=== PATIENT | female | born 1985 | race African-American/Black ===

== ENCOUNTER 2017-11-16 18:17 | Emergency (ER) | payer OTHER ==
[2017-11-16 18:24] VITALS: BP 127/79; PULSE 84; RESP 18; TEMP 98; O2SAT 100
[2017-11-16] MEDS ORDERED: HYDR12.57 PO (18:32)
[2017-11-16] MEDS ORDERED: ATOR20TA15 PO ×2 (18:32→19:55)
[2017-11-16] MEDS ORDERED: METF500T PO (18:32)
[2017-11-16] MEDS ORDERED: LISI10TA3 PO (18:32)
[2017-11-16] MEDS ORDERED: AMLO10TA2 PO (18:32)
--- NOTE | 2017-11-16 18:44 | PD ---
HPI Chief Complaint: Cardiac Complaint Time Seen by Provider: 18:42 Travel History International Travel<30 days: No Contact w/Intl Traveler<30days: No Traveled to known affect area: No History of Present Illness HPI 32-year-old female patient with history of palpitations which have been going on over the past month, being evaluated by a door tender in [facility], had just turned her Holter monitor and to them today. She states that she started having palpitation episodes lasting a few minutes at a time, worse than her usual, feels like it is getting faster. She states that it is coming and going. She denies any dizziness, shortness of breath, or any other issues. She has had stress testing and cardiac echo which were all unremarkable according to her. Modifying Factors: None Associated Signs & Symptoms: Palpitations Risk Factors: Being evaluated this month for palpitations PFSH Past Medical History High Cholesterol: Yes Diabetes: Yes Patient Takes Glucophage: Yes Hypertension: Yes ?: Not Tubal Ligation: Yes Past Surgical History Section: Yes Social History Alcohol Use: No Tobacco Use: No Substance Use: No Allergies-Medications (Allergen,Severity, Reaction): Coded Allergies: No Known Allergies (Unverified , 11/16/17) Reported Meds & Prescriptions Reported Meds & Active Scripts Active Reported Amlodipine (Amlodipine Besylate) 10 Mg Tab 10 Mg PO DAILY Metformin (Metformin HCl) 500 Mg Tab 500 Mg PO DAILY With a meal Lisinopril 10 Mg Tab 10 Mg PO DAILY Hydrochlorothiazide 12.5 Mg Cap 12.5 Mg PO DAILY Atorvastatin (Atorvastatin Calcium) 20 Mg Tab 20 Mg PO HS Review of Systems Except as stated in HPI: all other systems reviewed are Neg Physical Exam Narrative GENERAL: Well-developed young -[place] female patient currently in mild distress. Awake and oriented 3. SKIN: Focused skin assessment warm/dry. HEAD: Atraumatic. Normocephalic. EYES: Pupils equal and round. No scleral icterus. No injection or drainage. ENT: No nasal bleeding or discharge. Mucous membranes pink and moist. NECK: Trachea midline. No JVD. CARDIOVASCULAR: Regular rate and rhythm. No murmur appreciated. RESPIRATORY: No accessory muscle use. Clear to auscultation. Breath sounds equal bilaterally. GASTROINTESTINAL: Abdomen soft, non-tender, nondistended. Hepatic and splenic margins not palpable. MUSCULOSKELETAL: No obvious deformities. No clubbing. No cyanosis. No edema. NEUROLOGICAL: Awake and alert. No obvious cranial nerve deficits. Motor grossly within normal limits. Normal speech. PSYCHIATRIC: Appropriate mood and affect; insight and judgment normal. Data Data Last Documented VS Vital Signs Date Time Temp Pulse Resp B/P (MAP) Pulse Ox O2 Delivery O2 Flow Rate FiO2 11/16/17 19:48 124/75 (91) 115/64 (81) 11/16/17 19:47 87 16 100 Room Air 11/16/17 18:24 98.0 Orders Orders Electrocardiogram (11/16/17 18:36) Basic Metabolic Panel (Bmp) (11/16/17 18:36) Ckmb (Isoenzyme) Profile (11/16/17 18:36) Complete Blood Count With Diff (11/16/17 18:36) Magnesium (Mg) (11/16/17 18:36) Prothrombin Time / Inr (Pt) (11/16/17 18:36) Act Partial Throm Time (Ptt) (11/16/17 18:36) Troponin I (11/16/17 18:36) Ecg Monitoring (11/16/17 18:36) Bilateral Bp Monitoring (11/16/17 18:36) Iv Access Insert/Monitor (11/16/17 18:36) Oximetry (11/16/17 18:36) Oxygen Administration (11/16/17 18:36) Sodium Chloride 0.9% Flush (Ns Flush) (11/16/17 18:45) Chest, Pa & Lat (11/16/17 18:36) CKMB (11/16/17 19:00) CKMB% (11/16/17 19:00) Potassium Chloride Eff (K-Lyte Cl Eff) (11/16/17 19:30) Labs Laboratory Tests Test 11/16/17 19:00 White Blood Count 8.2 TH/MM3 Red Blood Count 4.65 MIL/MM3 Hemoglobin 13.1 GM/DL Hematocrit 40.1 % Mean Corpuscular Volume 86.2 FL Mean Corpuscular Hemoglobin 28.2 PG Mean Corpuscular Hemoglobin Concent 32.7 % Red Cell Distribution Width 13.4 % Platelet Count 220 TH/MM3 Mean Platelet Volume 8.0 FL Neutrophils (%) (Auto) 67.2 % Lymphocytes (%) (Auto) 23.1 % Monocytes (%) (Auto) 5.9 % Eosinophils (%) (Auto) 1.0 % Basophils (%) (Auto) 2.8 % Neutrophils # (Auto) 5.5 TH/MM3 Lymphocytes # (Auto) 1.9 TH/MM3 Monocytes # (Auto) 0.5 TH/MM3 Eosinophils # (Auto) 0.1 TH/MM3 Basophils # (Auto) 0.2 TH/MM3 CBC Comment DIFF FINAL Differential Comment Prothrombin Time 10.7 SEC Prothromb Time International Ratio 1.1 RATIO Activated Partial Thromboplast Time 29.7 SEC Blood Urea Nitrogen 9 MG/DL Creatinine 0.97 MG/DL Random Glucose 135 MG/DL Calcium Level 8.8 MG/DL Magnesium Level 2.1 MG/DL Sodium Level 132 MEQ/L Potassium Level 3.1 MEQ/L Chloride Level 98 MEQ/L Carbon Dioxide Level 25.2 MEQ/L Anion Gap 9 MEQ/L Estimat Glomerular Filtration Rate 66 ML/MIN Total Creatine Kinase 278 U/L Creatine Kinase MB 1.7 NG/ML Creatine Kinase MB % 0.6 % Troponin I LESS THAN 0.02 NG/ML MDM Medical Decision Making Medical Screen Exam Complete: Yes Emergency Medical Condition: Yes Medical Record Reviewed: Yes Interpretation(s) EKG shows normal sinus rhythm at a rate of 82 bpm with no signs of acute ST elevations or depressions. Laboratory Tests Test 11/16/17 19:00 Basophils (%) (Auto) 2.8 % (0.0-2.0) Random Glucose 135 MG/DL (74-106) Sodium Level 132 MEQ/L (136-145) Potassium Level 3.1 MEQ/L (3.5-5.1) Estimat Glomerular Filtration Rate 66 ML/MIN (>89) Total Creatine Kinase 278 U/L (26-192) Troponin I LESS THAN 0.02 NG/ML Differential Diagnosis Palpitations: Anxiety attack versus dysrhythmias versus dehydration versus metabolic issues Narrative Course Chest x-ray was fairly unremarkable. Lab work that showed mild hypokalemia and potassium was given by mouth in the ER. We did not witness any significant dysrhythmias in the ER. She had some slight episodes of sinus tachycardia but was otherwise fairly stable in the ER. At this point, my plan would be to release her with follow-up to her door tender. Return for new issues as needed. The plan has been discussed with the patient and she states understanding. Diagnosis Primary Impression: Palpitations Additional Impression: Hypokalemia Med/Other Pt SpecificInfo: Prescription(s) given Scripts Potassium Chloride Microencaps (Potassium Chloride Microencaps) 20 Meq Tab 20 MEQ PO DAILY for Electrolyte Replacement, #10 TAB 0 Refills Prov: Belinda Collins MD 11/16/17 Atorvastatin (Atorvastatin) 20 Mg Tab 20 MG PO HS for Cholesterol Management, #30 TAB 0 Refills Prov: Belinda Collins MD 11/16/17 Disposition: 01 DISCHARGE HOME Condition: Stable Belinda Collins MD Nov 16, 2017 18:44
[2017-11-16] MEDS ORDERED: SODIUM CHLORIDE 0.9% FLUSH 10 ML FLUSH IVF PRN (18:45)
[2017-11-16 18:54] VITALS: O2SAT 98
[2017-11-16 19:05] LABS: AUTOMATED NEUTROPHIL # 5.5 TH/MM3 (1.8-7.7); BASOPHIL # 0.2 TH/MM3 (0-0.2); BASOPHIL % 2.8 % (0.0-2.0); EOSINOPHIL # 0.1 TH/MM3 (0-0.4); HEMATOCRIT 40.1 % (35.0-46.0); HEMOGLOBIN 13.1 GM/DL (11.6-15.3); LYMPH % 23.1 % (9.0-44.0); LYMPHOCYTE # 1.9 TH/MM3 (1.0-4.8); MEAN CELL VOLUME 86.2 FL (80.0-100.0); MEAN CORPUSCULAR HEMOGLOBIN 28.2 PG (27.0-34.0); MEAN CORPUSCULAR HGB CONC 32.7 % (32.0-36.0); MONO % 5.9 % (0.0-8.0); MONOCYTE # 0.5 TH/MM3 (0-0.9); NEUT % 67.2 % (16.0-70.0); PLATELET COUNT 220 TH/MM3 (150-450); RED BLOOD COUNT 4.65 MIL/MM3 (4.00-5.30); RED CELL DISTRIBUTION WIDTH 13.4 % (11.6-17.2); WHITE BLOOD COUNT 8.2 TH/MM3 (4.0-11.0)
[2017-11-16 19:14] LABS: CHLORIDE 98 MEQ/L (98-107); SODIUM (NA) 132 MEQ/L (136-145)
[2017-11-16 19:17] LABS: BICARBONATE 25.2 MEQ/L (21.0-32.0); BLOOD UREA NITROGEN 9 MG/DL (7-18); CALCIUM 8.8 MG/DL (8.5-10.1); GLUCOSE,RANDOM 135 MG/DL (74-106); MAGNESIUM 2.1 MG/DL (1.5-2.5)
[2017-11-16 19:20] LABS: CREATININE 0.97 MG/DL (0.50-1.00); GLOMERULAR FILTRATION RATE 66 ML/MIN (>89)
[2017-11-16 19:24] LABS: TROPONIN I LESS THAN 0.02 NG/ML (0.02-0.05)
[2017-11-16] MEDS ORDERED: POTASSIUM CHLORIDE 25 MEQ EFFERVESCENT TAB PO ONE (19:30)
[2017-11-16 19:35] LABS: INTERNATIONAL NORMALIZED RATIO 1.1 RATIO; PROTHROMBIN TIME - PATIENT 10.7 SEC (9.8-11.6)
[2017-11-16 19:47] VITALS: BP 124/75; PULSE 87; RESP 16; O2SAT 100
[2017-11-16 19:48] VITALS: BP_SYST 115; BP_SYST 124; BP_DIAS 64; BP_DIAS 75
[2017-11-16] MEDS ORDERED: POTA20TA5 PO (19:55)
--- NOTE | 2017-11-16 20:05 | RADRPT ---
EXAM DATE/TIME: 11/16/2017 19:21 [facility] COMPARISON: No previous studies available for comparison. INDICATIONS : Heart palpitations. MEDICAL HISTORY : Diabetes mellitus type II. Hypertension SURGICAL HISTORY : section. ENCOUNTER: Initial ACUITY: 3 months PAIN SCORE: 0/10 LOCATION: Bilateral chest FINDINGS: PA and lateral views of the chest demonstrate the lungs to be symmetrically aerated without evidence of mass, infiltrate or effusion. The cardiomediastinal contours are unremarkable. Osseous structure s are intact. CONCLUSION: No acute disease. Adalid Matos MD on November 16, 2017 at 20:04 Board Certified Radiologist. This report was verified electronically.
--- NOTE | 2017-11-17 08:51 | EKG ---
Date Performed: 11/16/2017 Time Performed: 18:23:24 PTAGE: 32 years EKG: Sinus rhythm NORMAL ECG NO PREVIOUS TRACING DOCTOR: Echo Edgar Interpretating Date/Time 11/17/2017 08:51:03
== END 2017-11-16 20:14 | disposition home or self-care (01) ==
LOC: PHEFT 18:17
DX: R00.2 Palpitations (principal); E87.6 Hypokalemia; E11.9 Type 2 diabetes mellitus without complications; E78.00 Pure hypercholesterolemia, unspecified; I10 Essential (primary) hypertension
CPT/HCPCS: 71046; 80048; 82550; 82552; 83735; 84484; 85025; 85610; 85730; 93005; 99285